=== PATIENT | female | born 1975 | race African-American/Black ===

== ENCOUNTER 2018-03-23 14:31 | Inpatient (IN) ==
[2018-03-23 14:54] LABS: Basophils # 0.1 10*3/uL (0.0-0.2); Eosinophils # 0.1 10*3/uL (0.0-0.87); Eosinophils % 2.3 % (0.00-10.9); Hematocrit 45.3 VOL% (35.7-47.0); Hemoglobin 14.8 GM/DL (12.0-16.0); Immature Granulocytes % 0.2 %; Immature Granulocytes Absolute 0.01 #; Lymphocytes # 1.3 10*3/uL (1.4-4.0); Lymphocytes % 25.1 % (21.3-54.2); Mean Corpuscular HGB Conc 32.7 GM/DL (32-36); Mean Corpuscular Hemoglobin 30 PG (27-34); Mean Corpuscular Volume 90.4 FL (87-102); Monocytes # 0.3 10*3/uL (0.11-0.8); Monocytes % 5.3 % (1.7-12.7); Neutrophils # 3.5 10*3/uL (1.4-7.4); Neutrophils % 66.1 % (38.7-73.9); Platelet Count 250 T/CUMM (130-400); Red Blood Count 5.01 MC/CUMM (3.8-5.5); Red Cell Distribution Width 15.2 % (9.3-17.3); White Blood Count 5.3 T/CUMM (4-12)
[2018-03-23 15:04] LABS: INR 1.1; Partial Thromboplastin Time 25.9 SECS (0-40)
[2018-03-23 15:22] LABS: Albumin 3.5 G/DL (3.4-5.0); Bilirubin,Total 0.9 MG/DL (0.2-1.0); Calcium 9.1 MG/DL (8.5-10.1); Osmolality,Calculated 280.5 MOS/KG (273-304); Potassium 4.1 MMOL/L (3.5-5.1); Total Protein 6.7 G/DL (6.4-8.3)
[2018-03-23] MEDS ORDERED: FUROSEMIDE 40 MG/4 ML VIAL IV STA (17:14)
[2018-03-23] MEDS ORDERED: ONDANSETRON 4 MG/2 ML VIAL IV PRN (17:46)
[2018-03-23] MEDS ORDERED: ACETAMINOPHEN 325 MG TABLET PO PRN (17:46)
[2018-03-23] MEDS ORDERED: amLODIPine 5 MG TABLET PO STA (17:50)
[2018-03-23] MEDS: niCARdipine INJ 25 MG in SODIUM CHLORIDE 0.9% 240 ML IV PRN ×2 (18:15→21:49)
[2018-03-23] MEDS ORDERED: LABETALOL 100 MG/20 ML VIAL IV STA (18:30)
[2018-03-23 19:29] LABS: Apearance,Urine CLEAR (Clear); Bilirubin,Urine Negative (Negative); Blood, Urine Small mg/dL (Negative); Glucose,Urine (UA) Negative (Negative); Hyaline Casts,Urine 2 /LPF (0-3); Ketones,Urine Negative (Negative); Nitrite,Urine Negative (Negative); Protein,Urine Negative; Squamous Epithelial Cell,Urine Occasional /HPF (0-10); Urine Color Colorless (Yellow); Urine Specific Gravity 1.003 (1.001-1.035); Urine Urobilinogen < 2.0 EU/DL (0.2-1.0); WBC,Urine <1 /HPF (0-6)
[2018-03-23] MEDS: ENOXAPARIN 40 MG/0.4 ML SYRINGE SUBCUT SCH (21:50)
[2018-03-23] MEDS: CARVEDILOL 3.125 MG TABLET PO SCH (21:50)
[2018-03-24] MEDS: niCARdipine INJ 25 MG in SODIUM CHLORIDE 0.9% 240 ML IV PRN (02:23)
[2018-03-24 05:05] LABS: Basophils # 0.1 10*3/uL (0.0-0.2); Basophils % 0.7 % (0.0-0.8); Eosinophils # 0.1 10*3/uL (0.0-0.87); Eosinophils % 1.6 % (0.00-10.9); Hematocrit 44.7 VOL% (35.7-47.0); Hemoglobin 14.9 GM/DL (12.0-16.0); Immature Granulocytes % 0.1 %; Immature Granulocytes Absolute 0.01 #; Lymphocytes # 1.6 10*3/uL (1.4-4.0); Lymphocytes % 22.2 % (21.3-54.2); Mean Corpuscular HGB Conc 33.3 GM/DL (32-36); Mean Corpuscular Hemoglobin 29 PG (27-34); Mean Corpuscular Volume 88.3 FL (87-102); Mean Platelet Volume 9.8 FL (9.6-12.0); Monocytes # 0.4 10*3/uL (0.11-0.8); Monocytes % 5.1 % (1.7-12.7); Neutrophils # 5.2 10*3/uL (1.4-7.4); Neutrophils % 70.3 % (38.7-73.9); Platelet Count 268 T/CUMM (130-400); Red Blood Count 5.06 MC/CUMM (3.8-5.5); Red Cell Distribution Width 15.6 % (9.3-17.3); White Blood Count 7.4 T/CUMM (4-12)
[2018-03-24 05:36] LABS: Calcium 8.9 MG/DL (8.5-10.1); Osmolality,Calculated 292.6 MOS/KG (273-304); Potassium 3.2 MMOL/L (3.5-5.1); Risk Ratio 3.43
[2018-03-24] MEDS: CARVEDILOL 3.125 MG TABLET PO SCH (08:08)
[2018-03-24] MEDS: amLODIPine 10 MG TABLET PO SCH (08:08)
[2018-03-24] MEDS: FUROSEMIDE 40 MG TABLET PO SCH (08:49)
[2018-03-24] MEDS: PANTOPRAZOLE 40 MG TABLET PO SCH (08:49)
[2018-03-24] MEDS: ASPIRIN EC 81 MG TABLET PO SCH (08:49)
[2018-03-24] MEDS: hydrALAZINE 20 MG/1 ML VIAL IV PRN ×3 (10:49→17:54)
[2018-03-24] MEDS ORDERED: POTASSIUM CHLORIDE 20 MEQ TABLET PO ONE (13:23)
[2018-03-24] MEDS ORDERED: SPIRONOLACTONE 50 MG TABLET PO ONE (13:23)
[2018-03-24] MEDS: CARVEDILOL 6.25 MG TABLET PO SCH (20:22)
[2018-03-24] MEDS: ENOXAPARIN 40 MG/0.4 ML SYRINGE SUBCUT SCH (20:22)
[2018-03-25 05:44] LABS: Calcium 8.4 MG/DL (8.5-10.1); Osmolality,Calculated 280.3 MOS/KG (273-304); Potassium 3.3 MMOL/L (3.5-5.1)
[2018-03-25] MEDS ORDERED: POTASSIUM CHLORIDE 20 MEQ TABLET PO ONE (08:31)
[2018-03-25] MEDS ORDERED: SPIRONOLACTONE 50 MG TABLET PO ONE (08:45)
[2018-03-25] MEDS: hydrALAZINE 25 MG TABLET PO SCH ×2 (08:46→21:18)
[2018-03-25] MEDS: amLODIPine 10 MG TABLET PO SCH (08:47)
[2018-03-25] MEDS: CARVEDILOL 6.25 MG TABLET PO SCH ×2 (08:47→21:18)
[2018-03-25] MEDS: ASPIRIN EC 81 MG TABLET PO SCH (08:47)
[2018-03-25] MEDS: FUROSEMIDE 40 MG TABLET PO SCH (08:47)
[2018-03-25] MEDS: PANTOPRAZOLE 40 MG TABLET PO SCH (08:47)
[2018-03-25] MEDS: hydrALAZINE 20 MG/1 ML VIAL IV PRN (14:43)
[2018-03-25] MEDS: ENOXAPARIN 40 MG/0.4 ML SYRINGE SUBCUT SCH (21:18)
[2018-03-26] MEDS: hydrALAZINE 20 MG/1 ML VIAL IV PRN (00:44)
[2018-03-26 05:58] LABS: Calcium 8.7 MG/DL (8.5-10.1); Osmolality,Calculated 277.5 MOS/KG (273-304); Potassium 3.5 MMOL/L (3.5-5.1)
[2018-03-26] MEDS: PANTOPRAZOLE 40 MG TABLET PO SCH (08:28)
[2018-03-26] MEDS: ASPIRIN EC 81 MG TABLET PO SCH (08:28)
[2018-03-26] MEDS: amLODIPine 10 MG TABLET PO SCH (08:28)
[2018-03-26] MEDS: CARVEDILOL 6.25 MG TABLET PO SCH (08:28)
[2018-03-26 09:31] VITALS: BP 140/99
== END 2018-03-26 10:35 | disposition home or self-care (01) | DRG 291 ==
LOC: N.ED 14:31 → N.EDINP 17:46 → N.CC 18:49
PROVIDERS: ADMIT Family Medicine; ATTEND Family Medicine